=== PATIENT | female | born 1985 | race Caucasian/White ===

== ENCOUNTER 2017-04-28 14:54 | Inpatient (IN) | payer OTHER ==
[2017-04-28] MEDS ORDERED: Glycerin ADULT SUPP PR PRN (17:52)
[2017-04-28] MEDS ORDERED: Dibucaine 1% 28.35 GM TUBE PR PRN (17:52)
[2017-04-28] MEDS ORDERED: Witch Hazel PAD* JAR TOPICAL PRN (17:52)
[2017-04-28] MEDS ORDERED: Acetaminophen TAB* 325 MG PO PRN (17:52)
[2017-04-28] MEDS: Docusate CAP* 100 MG PO SCH (20:03)
[2017-04-28] MEDS: Ibuprofen TAB* 600 MG PO PRN (20:03)
[2017-04-28] MEDS ORDERED: Simethicone TAB* 80 MG TAB.CHEW PO SCH (21:00)
[2017-04-29 07:02] LABS: Hematocrit 35 % (35-47); Hemoglobin 11.7 g/dl (12.0-16.0); Mean Corpuscular HGB Conc 34 g/dl (31-36); Mean Corpuscular Hemoglobin 30 pg (27-31); Mean Corpuscular Volume 90 fL (80-97); Mean Platelet Volume 9 um3 (7.4-10.4); Red Blood Count 3.86 10^6/ul (4.0-5.4); Red Cell Distribution Width 13 % (10.5-15); White Blood Count 15.3 10^3/ul (3.5-10.8)
[2017-04-29] MEDS ORDERED: Influenza VAC *QUAD* 2017-18* 0.5 ML SYRINGE IM ONE (09:00)
[2017-04-29] MEDS ORDERED: Ferrous Gluconate TAB* 324 MG TAB PO SCH (09:00)
[2017-04-29] MEDS: Ibuprofen TAB* 600 MG PO PRN (09:33)
[2017-04-29] MEDS: Docusate CAP* 100 MG PO SCH ×3 (09:34→19:58)
[2017-04-30 08:44] VITALS: BP 110/69
[2017-04-30] MEDS: Docusate CAP* 100 MG PO SCH (09:27)
== END 2017-04-30 11:44 | disposition home or self-care (01) | DRG 560 ==
LOC: MCHOBOUT 14:54 → MCHOB 15:22
PROVIDERS: ADMIT Midwife; ATTEND Midwife
PROC: 0HQ9XZZ Repair Perineum Skin, External Approach (ICD-10-PCS; principal; 2017-04-28)
PROC: 4A1HX4Z Monitoring of Products of Conception, Cardiac Electrical Activity, External Approach (ICD-10-PCS; 2017-04-28)
PROC: 10E0XZZ Delivery of Products of Conception, External Approach (ICD-10-PCS; 2017-04-28)
PROC: 3E0234Z Introduction of Serum, Toxoid and Vaccine into Muscle, Percutaneous Approach (ICD-10-PCS; 2017-04-29)
DX: O70.0 First degree perineal laceration during delivery (principal); Z23 Encounter for immunization; Z3A.39 39 weeks gestation of pregnancy; Z37.0 Single live birth; Z88.5 Allergy status to narcotic agent; Z88.0 Allergy status to penicillin
CPT/HCPCS: 36415; 85025; 90686; A9270-GY